=== PATIENT | male | born 1995 | race African-American/Black ===

== ENCOUNTER 2021-08-17 00:04 | Emergency (ER) | payer MEDICAID ==
[~2021-08-17] VITALS: Ht 182.9 cm; Wt 83.9 kg
[2021-08-17 00:30] VITALS: BP_SYST 143
--- NOTE | 2021-08-17 00:35 | NUR ---
PT CAME TO ER AFTER A DOG BITE TO FACE. AT 2330 PT TRIED TO WAKE UP DOG TO PLAY AND DOG BIT HIS FACE. RIGHT CHEEK AND LEFT CHEEK BITES. DOG WAS HIS OWN. DOG IS VACCINATED. 4/10 PAIN. ABOUT 2 INCH BITES.
[2021-08-17] MEDS ORDERED: AMOXICILLIN/CLAVULANATE POTASSIUM 875 MG TABLET PO ONE (02:00)
--- NOTE | 2021-08-17 02:00 | NUR ---
ER Dr. RIVAS at bedside examining patient.
--- NOTE | 2021-08-17 02:08 | NUR ---
PO antibiotics taken with water, well tolerated
--- NOTE | 2021-08-17 02:34 | NUR ---
Patient does not wish to proceed with medical care recommended by DR RIVAS. Patient given information related to possible complications, up to and including , which could occur as a result of leaving hospital at this time. Patient verbalizes understanding of risks involved leaving against medical advice. Patient has signed AMA form.
[2021-08-17 02:35] VITALS: BP_SYST 143
== END 2021-08-17 02:34 | disposition left against medical advice (07) ==
LOC: SED 00:04
DX: S01.411A Laceration without foreign body of right cheek and temporomandibular area, initial encounter (principal); S01.412A Laceration without foreign body of left cheek and temporomandibular area, initial encounter; W54.0XXA Bitten by dog, initial encounter; Y93.89 Activity, other specified; Y92.89 Other specified places as the place of occurrence of the external cause; Y99.8 Other external cause status
CPT/HCPCS: 99283